=== PATIENT | male | born 1975 | race Caucasian/White ===

== ENCOUNTER 2017-06-16 17:08 | Emergency (ER) | payer MEDICAID ==
[~2017-06-16] VITALS: Ht 175.3 cm; Wt 77.1 kg
[~2017-06-16 17:08] MED LIST: ETODOLAC400 MG PO; FLEXERIL10 MG PO; KLONOPIN PO; LISINOPRIL10 MG PO; NAPROSYN500 M1 PO; PERCOCET1 TAB PO; PREDNISONE 20MG20 MG PO; TYLENOL WITH CO1 TA1 PO; ULTRAM50 MG PO
--- OUTSIDE RECORDS SUMMARY | 2017-06-16 17:27 | External Medical Summary Rpt | CCD ---
Author Author AUREA Address Unknown Phone [email or web address] Purpose Continuity of Care Document - through 2016
--- OUTSIDE RECORDS SUMMARY | 2017-06-16 17:27 | External Medical Summary Rpt | CCD ---
Author Author AUREA Address Unknown Phone [email or web address] Purpose Continuity of Care Document - through 2016
--- OUTSIDE RECORDS SUMMARY | 2017-06-16 17:28 | External Medical Summary Rpt | CCD ---
Author Author [employer] Organization [employer] Address Unknown Phone Unavailable Purpose Continuity of Care Document - through 2016
--- OUTSIDE RECORDS SUMMARY | 2017-06-16 17:28 | External Medical Summary Rpt | CCD ---
Author Author , AUREA BELTRE Address Unknown Phone [email or web address] Immunization Name Date Rout CVX Reac Dose Comm Prov Is Faci e tion ent ider Refu lity Give sed n Tdap 06-0 115 999 Hist H149 No H149 , 2-20 oric Adso 14 al rbed Info rmat ion - Sour ce Unsp ecif ied
--- OUTSIDE RECORDS SUMMARY | 2017-06-16 17:28 | External Medical Summary Rpt ---
Author Author PATT Pedroza, [employer] Address Unknown Phone Unavailable
--- OUTSIDE RECORDS SUMMARY | 2017-06-16 17:28 | External Medical Summary Rpt | CCD ---
Author Author , AUREA BELTRE Address Unknown Phone Immunization Name Date Rout CVX Reac Dose Comm Prov Is Faci e tion ent ider Refu lity Give sed n Tdap 06-0 115 999 Hist H149 No H149 , 2-20 oric Adso 14 al rbed Info rmat ion - Sour ce Unsp ecif ied
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
[2017-06-16 17:36] LABS: LYMPH # 4.8 K/mm3 (0.7-4.5); LYMPH % 30.9 % (10-50)
[2017-06-16 17:39] LABS: HEMOGLOBIN 17.3 g/dL (14.1-18.0)
[2017-06-16 18:04] LABS: NEUTROPHILS 54 % (42-76)
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
[2017-06-16 19:43] VITALS: BP 146/77
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
== END 2017-06-16 19:52 | disposition short-term general hospital (02) ==
LOC: ER 17:08
PROVIDERS: General Practice
DX: S72.141A Displaced intertrochanteric fracture of right femur, initial encounter for closed fracture (principal); I10 Essential (primary) hypertension; F17.210 Nicotine dependence, cigarettes, uncomplicated; F10.10 Alcohol abuse, uncomplicated; V86.59XA Driver of other special all-terrain or other off-road motor vehicle injured in nontraffic accident, initial encounter; Y92.9 Unspecified place or not applicable
CPT/HCPCS: J2405